=== PATIENT | male | born 1965 | race African-American/Black ===

== ENCOUNTER 2018-01-12 16:05 | Inpatient (IN) ==
[2018-01-12] MEDS ORDERED: cefTRIAXone 1,000 MG VIAL IV STA (17:33)
[2018-01-12] MEDS ORDERED: metroNIDAZOLE INJ 500 MG in PREMIX 1 EACH IV STA (17:34)
[2018-01-12] MEDS ORDERED: ALBUTEROL/IPRATROPIUM 3 ML NEB RESP TX STA (17:34)
[2018-01-12] MEDS ORDERED: SODIUM CHLORIDE 0.9% 1,000 ML IV STA ×3 (17:35→20:47)
[2018-01-12 17:40] LABS: Basophils % 0.2 % (0.0-0.8); Eosinophils # 0.1 10*3/uL (0.0-0.87); Eosinophils % 1.8 % (0.00-10.9); Hematocrit 43.1 VOL% (42.0-52.0); Immature Granulocytes % 1.4 %; Immature Granulocytes Absolute 0.07 #; Lymphocytes # 0.6 10*3/uL (1.4-4.0); Lymphocytes % 11.8 % (21.2-54.2); Mean Corpuscular HGB Conc 32.5 GM/DL (32-36); Mean Corpuscular Hemoglobin 26 PG (27-34); Mean Corpuscular Volume 78.4 FL (87-102); Mean Platelet Volume 12.6 FL (9.6-12.0); Monocytes # 0.1 10*3/uL (0.11-0.8); Monocytes % 1.2 % (1.7-12.7); Neutrophils # 4.3 10*3/uL (1.4-7.4); Neutrophils % 83.6 % (38.7-73.9); Platelet Count 110 T/CUMM (130-400); Red Cell Distribution Width 14.1 % (9.3-17.3); White Blood Count 5.1 T/CUMM (4-12)
[2018-01-12 18:09] LABS: Lactic Acid 4.2 MMOL/L (0.4-2.0)
[2018-01-12] MEDS ORDERED: ACETAMINOPHEN 500 MG TABLET PO STA (18:09)
[2018-01-12 18:11] LABS: Alanine Aminotransferase 53 U/L (16-61); Albumin 2.8 G/DL (3.4-5.0); Alkaline Phosphatase 98 U/L (45-117); Aspartate Amino Transferase 43 U/L (0-37); Blood Urea Nitrogen 14 MG/DL (7-18); Calcium 8.7 MG/DL (8.5-10.1); Glucose 133 MG/DL (74-106); Osmolality,Calculated 275.8 MOS/KG (273-304); Potassium 3.8 MMOL/L (3.5-5.1); Sodium 137 MMOL/L (136-145); Total Protein 7.3 G/DL (6.4-8.3)
[2018-01-12] MEDS ORDERED: ACETAMINOPHEN 500 MG TABLET ONE (18:12)
[2018-01-12] MEDS ORDERED: cefTRIAXone 1,000 MG VIAL ONE (18:17)
[2018-01-12] MEDS ORDERED: SODIUM CHLORIDE 0.9% 100 ML IV ONE (18:17)
[2018-01-12] MEDS ORDERED: metroNIDAZOLE 500 MG/100 ML PREMIX IV ONE (18:20)
[2018-01-12 18:23] LABS: Apearance,Urine CLEAR (Clear); Bilirubin,Urine Negative (Negative); Blood, Urine Small mg/dL (Negative); Glucose,Urine (UA) Negative (Negative); Ketones,Urine Negative (Negative); Mucus,Urine Occasional /LPF (Occasional); Nitrite,Urine Negative (Negative); Protein,Urine 100 MG/DL; RBC,Urine 5 /HPF (0-4); Squamous Epithelial Cell,Urine Occasional /HPF (0-10); Urine Color Yellow (Yellow); Urine Specific Gravity 1.017 (1.001-1.035); WBC,Urine 4 /HPF (0-6)
[2018-01-12] MEDS ORDERED: HYDROmorphone 2 MG/1 ML VIAL IV PRN (19:27)
[2018-01-12] MEDS ORDERED: ONDANSETRON 4 MG/2 ML VIAL IV PRN (19:27)
[2018-01-12] MEDS ORDERED: IBUPROFEN 800 MG TABLET PO STA (19:29)
[2018-01-12] MEDS ORDERED: IBUPROFEN 400 MG TABLET ONE (19:30)
[2018-01-12] MEDS: cefOXitin 2,000 MG in SYRINGE 1 EACH IV SCH (22:13)
[2018-01-12] MEDS: LACTATED RINGERS 1,000 ML IV SCH (22:13)
[2018-01-12 22:15] LABS: Troponin I 0.171 NG/ML (0.00-0.045)
[2018-01-13] MEDS: LACTATED RINGERS 1,000 ML IV SCH ×5 (04:00→21:31)
[2018-01-13 04:23] LABS: Lactic Acid 2.1 MMOL/L (0.4-2.0)
[2018-01-13 04:25] LABS: Troponin I 0.041 NG/ML (0.00-0.045)
[2018-01-13] MEDS: cefOXitin 2,000 MG in SYRINGE 1 EACH IV SCH ×3 (06:40→21:34)
[2018-01-13] MEDS ORDERED: BUPIVACAINE MPF 0.25% /EPI 30 ML VIAL ONE (09:20)
[2018-01-13] MEDS ORDERED: LIDOCAINE 1%/EPI INJ 20 ML VIAL ONE (09:20)
[2018-01-13] MEDS ORDERED: TISSUE ADHESIVE 1 EACH APPLICATOR TOP ONE (09:20)
[2018-01-13] MEDS ORDERED: SUGAMMADEX 200 MG/2 ML VIAL IV ONE (10:55)
[2018-01-13] MEDS ORDERED: ACETAMINOPHEN 1,000 MG/100 ML VIAL IV ONE (11:19)
[2018-01-13] MEDS ORDERED: PROPOFOL 200 MG/20 ML VIAL IV ONE (11:19)
[2018-01-13] MEDS ORDERED: SEVOFLURANE 1 UNIT/15 MINUTE INH ONE (11:19)
[2018-01-13] MEDS ORDERED: fentaNYL 100 MCG/2 ML VIAL ONE (11:19)
[2018-01-13] MEDS ORDERED: MIDAZOLAM 2 MG/2 ML VIAL ONE (11:19)
[2018-01-13] MEDS ORDERED: ROCURONIUM 100 MG/10 ML VIAL IV ONE (11:19)
[2018-01-13] MEDS ORDERED: ONDANSETRON 4 MG/2 ML VIAL ONE (11:19)
[2018-01-13 12:04] LABS: Apearance,Urine Clear (Clear); Bilirubin,Urine Negative (Negative); Blood, Urine Negative (Negative); Glucose,Urine (UA) Negative (Negative); Ketones,Urine Negative (Negative); Nitrite,Urine Negative (Negative); Protein,Urine 30 MG/DL; Urine Color Yellow (Yellow)
[2018-01-13 15:42] LABS: Barbiturates Screen,Urine Negative (Negative); Benzodiazepines Screen,Urine Positive (Negative); Cannabinoid Screen,Urine Negative (Negative); Opiate Screen,Urine Negative (Negative); Phencyclidine Screen,Urine Negative (Negative)
[2018-01-13] MEDS: metroNIDAZOLE INJ 500 MG in PREMIX 1 EACH IV SCH ×2 (16:09→21:32)
[2018-01-13] MEDS: METOPROLOL TARTRATE 25 MG TABLET PO SCH ×2 (16:09→20:36)
[2018-01-13] MEDS: ACETAMINOPHEN 325 MG TABLET PO PRN ×2 (16:10→21:30)
[2018-01-14] MEDS: metroNIDAZOLE INJ 500 MG in PREMIX 1 EACH IV SCH ×4 (03:29→21:42)
[2018-01-14] MEDS: cefOXitin 2,000 MG in SYRINGE 1 EACH IV SCH ×3 (05:05→21:41)
[2018-01-14 05:35] LABS: Calcium 8.2 MG/DL (8.5-10.1)
[2018-01-14 08:13] LABS: Basophils % 0.3 % (0.0-0.8); Eosinophils # 0.1 10*3/uL (0.0-0.87); Eosinophils % 0.7 % (0.00-10.9); Hematocrit 35.6 VOL% (42.0-52.0); Hemoglobin 11.2 GM/DL (14.0-18.0); Immature Granulocytes % 1.1 %; Immature Granulocytes Absolute 0.12 #; Lymphocytes # 1.3 10*3/uL (1.4-4.0); Mean Corpuscular HGB Conc 31.5 GM/DL (32-36); Mean Corpuscular Hemoglobin 26 PG (27-34); Mean Corpuscular Volume 81.8 FL (87-102); Mean Platelet Volume 12.7 FL (9.6-12.0); Monocytes # 1.4 10*3/uL (0.11-0.8); Monocytes % 12.8 % (1.7-12.7); Neutrophils % 73.1 % (38.7-73.9); Platelet Count 105 T/CUMM (130-400); Red Blood Count 4.35 MC/CUMM (3.8-5.5); Red Cell Distribution Width 14.6 % (9.3-17.3)
[2018-01-14] MEDS: METOPROLOL TARTRATE 25 MG TABLET PO SCH ×2 (09:28→21:37)
[2018-01-14] MEDS ORDERED: SIMETHICONE CHEW 125 MG TABLET PO PRN (09:41)
[2018-01-14 10:58] LABS: Band Neutrophils 2 % (0-10); Eosinophils 2 % (0-10); Hypochromasia 1+; Lymphocytes 11 % (20-55); Segmented Neutrophils 78 % (50-85); Total Cells Counted 100
[2018-01-14 10:59] LABS: Microcytosis 1+; Platelet Estimate Decreased
[2018-01-14] MEDS: ACETAMINOPHEN 325 MG TABLET PO PRN (13:37)
[2018-01-14] MEDS: LACTATED RINGERS 1,000 ML IV SCH ×2 (13:54→21:41)
[2018-01-15 03:31] LABS: Basophils # 0.1 10*3/uL (0.0-0.2); Basophils % 0.4 % (0.0-0.8); Eosinophils # 0.2 10*3/uL (0.0-0.87); Eosinophils % 1.3 % (0.00-10.9); Hematocrit 33.1 VOL% (42.0-52.0); Hemoglobin 10.5 GM/DL (14.0-18.0); Immature Granulocytes % 2.9 %; Immature Granulocytes Absolute 0.38 #; Lymphocytes # 1.8 10*3/uL (1.4-4.0); Lymphocytes % 14.2 % (21.2-54.2); Mean Corpuscular HGB Conc 31.7 GM/DL (32-36); Mean Corpuscular Hemoglobin 25 PG (27-34); Mean Corpuscular Volume 80.1 FL (87-102); Mean Platelet Volume 12.9 FL (9.6-12.0); Monocytes # 1.3 10*3/uL (0.11-0.8); Monocytes % 10.1 % (1.7-12.7); Neutrophils # 9.2 10*3/uL (1.4-7.4); Neutrophils % 71.1 % (38.7-73.9); Platelet Count 126 T/CUMM (130-400); Red Blood Count 4.13 MC/CUMM (3.8-5.5); Red Cell Distribution Width 14.6 % (9.3-17.3); White Blood Count 12.9 T/CUMM (4-12)
[2018-01-15 03:45] LABS: Calcium 8.6 MG/DL (8.5-10.1); Osmolality,Calculated 272.8 MOS/KG (273-304); Potassium 3.7 MMOL/L (3.5-5.1)
[2018-01-15] MEDS: metroNIDAZOLE INJ 500 MG in PREMIX 1 EACH IV SCH ×4 (05:10→21:10)
[2018-01-15] MEDS: cefOXitin 2,000 MG in SYRINGE 1 EACH IV SCH ×3 (06:21→21:06)
[2018-01-15] MEDS: LACTATED RINGERS 1,000 ML IV SCH ×2 (06:23→19:32)
[2018-01-15] MEDS: METOPROLOL TARTRATE 25 MG TABLET PO SCH ×2 (09:58→21:06)
[2018-01-16] MEDS: metroNIDAZOLE INJ 500 MG in PREMIX 1 EACH IV SCH ×2 (03:37→10:13)
[2018-01-16] MEDS: LACTATED RINGERS 1,000 ML IV SCH (03:47)
[2018-01-16] MEDS: cefOXitin 2,000 MG in SYRINGE 1 EACH IV SCH ×2 (05:39→11:35)
[2018-01-16 08:35] VITALS: BP 146/87
[2018-01-16] MEDS: METOPROLOL TARTRATE 25 MG TABLET PO SCH (08:48)
== END 2018-01-16 12:16 | disposition home or self-care (01) | DRG 342 ==
LOC: N.ED 16:05 → N.EDINP 20:18 → N.CC 21:03 → N.3E 01-13 18:35
PROVIDERS: ADMIT Surgery; ATTEND Surgery